=== PATIENT | male | born 1990 | race American Indian/Alaskan Native ===

== ENCOUNTER 2019-07-11 15:14 | Emergency (ER) | payer OTHER ==
[2019-07-11 15:42] VITALS: BP 126/73
--- NOTE | 2019-07-11 18:53 | Emergency Department Report ---
Chief Complaint: Urogenital-Male Stated Complaint: STD CHECK UP Time Seen by Provider: 07/11/19 18:15 - HPI History of Present Illness: Patient is a 29-year-old male who presents emergency room with complaints of a lesion to the penis that has been going on for multiple months. He states it first started in March and then self resolved a few weeks later. He states that then returned in May and has been improving but is still present. He states last night he noticed lesions in the tongue and on the mouth. Patient has a past medical history of HIV and herpes. He states he has not been on his HIV medications for 2 months. He denies any dysuria, abdominal pain, pain or swelling in the testicles, nausea, vomiting, diarrhea, chills. Vitals are stable on exam: Lesion present to the ventral surface of the penile shaft, it appears to be healing, mild scaliness, no drainage, no signs of infection Small white circular lesions present on the tongue, small erythematous shallow ulcers present inside the mouth, normal oropharynx, no tonsillar exudate or hyp ertrophy, uvula is midline, no uvular edema or deviation vp project: Isamar Scanlon PA-C Patient will be referred to infectious disease and other clinics Discussed in detail with patient the importance of getting back on his HIV meds and taking them as prescribed Lesions could be related to syphilis, herpes, HIV, he needs to have a full STD panel performed and treatment as deemed appropriate by a clinic Discussed strict return precautions with patient Medical screening examination performed and there is no threat to life or limb at this time pt referred to the appropriate resources discussed strict return precautions - Exam Vital Signs: Vital Signs 07/11/19 15:39 Temperature 97.9 F Pulse Rate 103 H Respiratory 18 Rate Blood Pressure 126/73 O2 Sat by Pulse 100 Oximetry MSE screening note: Focused history and physical exam performed. ED Disposition for MSE Clinical Impression: Lesion of penis, Lesion of tongue, Ulcer mouth, Non compliance w medication regimen Disposition: Z- MED SCREENING EXAM-LEFT Is pt being admited?: No Does the pt Need Aspirin: No Condition: Stable Additional Instructions: Please follow-up with the health department, infectious disease, or another clinic for full STD panel and to get put back on your appropriate medications. Please do not engage in sexual intercourse. Please have any partner tested and treated as well. Return to emergency room for any new or worsening symptoms. [facility] Address: [address], [place] [address] [facility] [place] Address: [address], [place] [address] [facility] Address: [address], [place] [address] [facility] Address[address], [place] [address] [facility] Address: [address] [place] [address] [facility] Address: [address] [place] [address] Referrals: [facility] [Outside] - 3-5 Days [facility] [Provider Group] - 3-5 Days ODALYS TRAYLOR MD [Staff Physician] - 3-5 Days [facility] [Outside] - 3-5 Days Forms: Work/School Release Form(ED) Time of Disposition: 18:53 Print Language: MOHAWK
== END 2019-07-11 19:20 | disposition left against medical advice (07) ==
LOC: ED 15:14
DX: N48.29 Other inflammatory disorders of penis (principal); K12.1 Other forms of stomatitis; Z91.013 Allergy to seafood
CPT/HCPCS: 99281

== ENCOUNTER 2021-03-03 10:44 | Emergency (ER) | payer SELFPAY ==
[2021-03-03 10:53] VITALS: BP 104/85
[2021-03-03] MEDS ORDERED: ACETAMINOPHEN 500 MG TAB PO ONE (12:32)
[2021-03-03] MEDS ORDERED: BENZONATATE 100 MG CAP PO ONE (12:32)
--- NOTE | 2021-03-03 13:30 | XRay Report ---
XR chest routine 2V INDICATION / CLINICAL INFORMATION: cough. COMPARISON: 12/16/2007 FINDINGS: SUPPORT DEVICES: None. HEART /PULMONARY VASCULATURE: No significant abnormality. LUNGS / PLEURA: No significant pulmonary or pleural abnormality. No pneumothorax. ADDITIONAL FINDINGS: Scoliotic curvature of the spine noted. IMPRESSION: 1. No acute findings. Signer Name: Tenzin Skelton MD Signed: 03/03/2021 1:26 PM Workstation Name: [id number]
--- NOTE | 2021-03-03 13:55 | Emergency Department Report ---
- General Chief Complaint: Upper Respiratory Infection Stated Complaint: DRY COUGH Time Seen by Provider: 03/03/21 11:48 Source: patient Mode of arrival: Ambulatory Limitations: No Limitations - History of Present Illness Initial Comments: This is a 30-year-old male nontoxic, well nourished in appearance, no acute signs of distress presents to the ED with c/o of dry nonproductive cough, sore throat, rhinorrhea, nasal congestion x several days. Patient describes sore throat as swallowing razer blades. Patient denies any drooling or hoarseness. Patient state he is Covid vaccinated. Patient denies any sick contacts. Patient denies any recent travels, long car, recent hospital stays. Patient denies any calf pain or calf tenderness. Patient denies any chest pain, short of breath, fever, chills, nausea, vomiting, hemoptysis, numbness, tingling, headache or stiff neck. Patient denies any allergies. Past medical history includes HIV which she stated follows up with primary care doctor. The patient was evaluated in the emergency department for symptoms described in the history of present illness. He/she was evaluated in the context of the global COVID-19 pandemic, which necessitated consideration that the patient might be at risk for infection with the virus that causes COVID-19. Institutional protocols and algorithms that pertain to the evaluation of pat ients at risk for COVID-19 are in a state of rapid change based on information released by regulatory bodies including the CDC and federal and state organizations. These policies and algorithms were followed during the patient's care in the emergency department. Please note that these policies, procedures and recommendations changed on a rapid basis. MD Complaint: cough, sore throat, rhinorrhea, nasal congestion -: days(s) Severity: mild Severity scale (0 -10): 3 Quality: aching Consistency: constant Improves With: nothing Worsens With: other (swallowing) Associated Symptoms: rhinorrhea, nasal congestion, sore throat, cough. denies: fever, chills, myalgias, diaphoresis, headache, stiff neck, chest pain, shortness of breath, abdominal pain, nausea, vomiting, diarrhea, dysuria, rash, confusion, right sweats, weight loss, epistaxis, hoarseness, ear pain Treatments Prior to Arrival: none - Related Data Previous Rx's Medication Instructions Recorded Last Taken Type Acetaminophen [Acetaminophen 8 650 mg PO Q8H PRN #12 tablet.er 03/03/21 Unknown Rx Hour] Amoxicillin [Amoxicillin TAB] 875 mg PO BID #20 tablet 03/03/21 Unknown Rx Allergies Allergy/AdvReac Type Severity Reaction Status Date / Time shellfish derived Allergy Hives Verified 07/11/19 15:41 ED Review of Systems ROS: Stated complaint: DRY COUGH Other details as noted in HPI Comment: All other systems reviewed and negative Constitutional: denies: chills, fever Eyes: denies: eye pain, eye discharge, vision change ENT: congestion. denies: ear pain, throat pain Respiratory: cough. denies: shortness of breath, wheezing Cardiovascular: denies: chest pain, palpitations Endocrine: no symptoms reported Gastrointestinal: denies: abdominal pain, nausea, diarrhea Genitourinary: denies: urgency, dysuria Musculoskeletal: denies: back pain, joint swelling, arthralgia Skin: denies: rash, lesions Neurological: denies: headache, weakness, paresthesias Psychiatric: denies: anxiety, depression Hematological/Lymphatic: denies: easy bleeding, easy bruising ED Past Medical Hx - Past Medical History Hx Asthma: Yes Hx HIV: Yes - Surgical History Past Surgical History?: No - Social History Smoking Status: Never Smoker Substance Use Type: None - Medications Home Medications: Home Medications Medication Instructions Recorded Confirmed Last Taken Type Acetaminophen [Acetaminophen 8 650 mg PO Q8H PRN #12 tablet.er 03/03/21 Unknown Rx Hour] Amoxicillin [Amoxicillin TAB] 875 mg PO BID #20 tablet 03/03/21 Unknown Rx ED Physical Exam - General Limitations: No Limitations General appearance: alert, in no apparent distress - Head Head exam: Present: atraumatic, normocephalic - Eye Eye exam: Present: normal appearance - Expanded ENT Exam Expanded Ear exam: Present: normal external inspection Mouth exam: Present: normal external inspection, tongue normal. Absent: drooling, trismus, muffled voice Teeth exam: Present: normal inspection Throat exam: Positive: tonsillar erythema, other (uvula midline). Negative: tonsillomegaly, tonsillar exudate, R peritonsillar mass, L peritonsillar mass - Neck Neck exam: Present: normal inspection, full ROM. Absent: tenderness, meningismus, lymphadenopathy - Respiratory Respiratory exam: Present: normal lung sounds bilaterally. Absent: respiratory distress, wheezes, rales, rhonchi, stridor, chest wall tenderness, accessory muscle use, decreased breath sounds, prolonged expiratory - Cardiovascular Cardiovascular Exam: Present: regular rate, normal rhythm, normal heart sounds. Absent: bradycardia, tachycardia, irregular rhythm, systolic murmur, diastolic murmur, rubs, gallop - Extremities Exam Extremities exam: Present: full ROM - Back Exam Back exam: Present: full ROM - Neurological Exam Neurological exam: Present: alert, oriented X3, normal gait - Psychiatric Psychiatric exam: Present: normal affect, normal mood - Skin Skin exam: Present: warm, dry, intact, normal color. Absent: rash ED Course Vital Signs 03/03/21 10:49 Temperature 97.9 F Pulse Rate 75 Respiratory 17 Rate Blood Pressure 104/85 O2 Sat by Pulse 99 Oximetry - Reevaluation(s) Reevaluation #1: 03/03/21 13:58 Patient is speaking in full sentences with no signs of distress noted. ED Medical Decision Making - Lab Data Lab Results 03/03/21 Range/Units Unknown Group A Strep Rapid Positive A (Negative) - Radiology Data [facility] [address] [place] [address] XRay Report Signed Patient: KWAN CASTELLANO MR#: [id number] : 1990 Acct:[id number] Age/Sex: 30 / M ADM Date: 03/03/21 Loc: ED Attending Dr: Dai acosta Physician: MARCELINA SALGADO NP Date of Service: 03/03/21 Procedure(s): XR chest routine 2V Accession Number(s): [id number] cc: MARCELINA SAGLADO NP Fluoro Time In Minutes: XR chest routine 2V INDICATION / CLINICAL INFORMATION: cough. COMPARISON: 12/16/2007 FINDINGS: SUPPORT DEVICES: None. HEART /PULMONARY VASCULATURE: No significant abnormality. LUNGS / PLEURA: No significant pulmonary or pleural abnormality. No pneumothorax. ADDITIONAL FINDINGS: Scoliotic curvature of the spine noted. IMPRESSION: 1. No acute findings. Signer Name: Pk Skelton MD Signed: 03/03/2021 1:26 PM Workstation Name: [id number] Transcribed By: JS Dictated By: PK SKELTON MD Electronically Authenticated By: PK SKELTON MD Signed Date/Time: 03/03/211325 DD/ 25 TD/TT: - Medical Decision Making This is a 30-year-old male that presents with viral upper respiratory symptoms and strep throat. Patient is stable and was examined by me. Chest x-ray has been obtained and dictated by radiologist with normal exam. Patient is notified of x-ray results with no questions noted. Patient does not meet clinical concerns of COVID-19 but patient was instructed and educated on signs and symptoms and to self quarantine and seek medical attention as soon as possible if symptoms does occur. Patient be treated with amoxicillin at discharge. Patient was instructed to increase hydration, rest and take Motrin for fever episodes. Vitals stable. Patient is nonfebrile and normal heart rate. Patient was instructed Follow-up with a primary care doctor in 3-5 days or if symptoms worsen and continue return to emergency room as soon as possible. At time time of discharge, the patient does not seem toxic or ill in appearance. No acute signs of distress noted. Patient agrees to discharge treatment plan of care. No further questions noted by the patient.nt. Critical care attestation.: If time is entered above; I have spent that time in minutes in the direct care of this critically ill patient, excluding procedure time. ED Disposition Clinical Impression: Viral upper respiratory illness, Strep throat Disposition: 01 HOME / SELF CARE / HOMELESS Is pt being admited?: No Does the pt Need Aspirin: No Condition: Stable Instructions: Strep Throat, Adult, [id number]-[id number] Additional Instructions: Follow-up with a primary care doctor in 3-5 days or if symptoms worsen and continue return to emergency room as soon as possible. Your symptoms appear most consistent with a nonspecific viral syndrome. However, given this current pandemic, COVID-19 is in the differential of possibilities. Despite your previous negative COVID-19 test, I do recommend repeat outpatient Covid 19 testing. In the meantime, isolate/quarantine yourself and stay away from anyone who is elderly, immunocompromised or chronically ill. Please see your nearest health department or primary care doctor that you are referred to for COVID testing. Increased rest, hydration, and take [id number] Tylenol as directed from instructions label for pain/fever episode. Prescriptions: Acetaminophen [Acetaminophen 8 Hour] 650 mg PO Q8H PRN #12 tablet.er PRN Reason: pain/fever Amoxicillin [Amoxicillin TAB] 875 mg PO BID #20 tablet Referrals: PRIMARY CAREMD [Primary Care Provider] - 3-5 Days VICTORIANO ZIEGLER MD [Staff Physician] - 3-5 Days Time of Disposition: 14:03
== END 2021-03-03 15:31 | disposition home or self-care (01) ==
LOC: ED 10:44
DX: J02.0 Streptococcal pharyngitis (principal); J06.9 Acute upper respiratory infection, unspecified
CPT/HCPCS: 71046; 87430; 99283

== ENCOUNTER 2021-03-31 11:19 | Emergency (ER) | payer SELFPAY ==
[2021-03-31] MEDS ORDERED: KETOROLAC 10 MG TAB PO ONE (12:50)
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
--- NOTE | 2021-03-31 13:22 | XRay Report ---
LEFT TIBIA AND FIBULA INDICATION: bruising/swelling. COMPARISON: None. IMPRESSION: Mild anterior and lateral soft tissue swelling is suspected. No osseous abnormality is appreciated. Signer Name: Kunal Ellis Jr, MD Signed: 03/31/2021 1:17 PM Workstation Name: [id number]
[2021-03-31 13:56] VITALS: BP 92/63
== END 2021-03-31 14:23 | disposition home or self-care (01) ==
LOC: ED 11:19
DX: S46.811A Strain of other muscles, fascia and tendons at shoulder and upper arm level, right arm, initial encounter (principal); S80.12XA Contusion of left lower leg, initial encounter; J45.909 Unspecified asthma, uncomplicated; Z79.899 Other long term (current) drug therapy; V87.7XXA Person injured in collision between other specified motor vehicles (traffic), initial encounter; Y93.89 Activity, other specified; Y92.488 Other paved roadways as the place of occurrence of the external cause; Y99.8 Other external cause status
CPT/HCPCS: 99283